=== PATIENT | male | born 1965 | race Hispanic/Latino ===

== ENCOUNTER 2018-04-20 11:20 | Emergency (ER) | payer OTHER ==
[2018-04-20] MEDS ORDERED: HYDROCODONE/APAP 10/325 TAB ONE (11:54)
--- NOTE | 2018-04-20 12:59 | RAD REPORT ---
EXAM DESCRIPTION: Ribs Right - 04/20/2018 12:42 pm CLINICAL HISTORY: Right rib pain FINDINGS: Mildly to moderately displaced fractures involve right fifth through ninth posterior ribs. A pneumothorax is not seen. The lungs appear clear of acute infiltrate The heart is mildly enlarged. Postsurgical changes involve the chest. The heart is mildly enlarged. A ray is tortuous/ectatic
--- NOTE | 2018-04-20 12:59 | RAD REPORT ---
EXAM DESCRIPTION: Tony Single View04/20/2018 12:42 pm CLINICAL HISTORY: Chest pain COMPARISON: 2016 FINDINGS: Mildly to moderately displaced fractures involve right fifth through ninth posterior ribs. A pneumothorax is not seen. The lungs appear clear of acute infiltrate The heart is mildly enlarged. Postsurgical changes involve the chest. The heart is mildly enlarged. A ray is tortuous/ectatic
--- NOTE | 2018-04-20 15:36 | RAD REPORT ---
EXAM DESCRIPTION: CT - Thorax Wo Con - 04/20/2018 3:01 pm CLINICAL HISTORY: Chest pain status post fall COMPARISON: April 20 x-ray chest TECHNIQUE: Computed axial tomography of the chest was obtained. Contrast was not requested. All CT scans are performed using dose optimization technique as appropriate and may include automated exposure control or mA/KV adjustment according to patient size. FINDINGS: The evaluation of mediastinum, ulises and vessels is limited secondary to lack of IV contras t administration. Mild bibasilar atelectasis. A mediastinal hematoma is not seen. Minimal right pleural effusion. Mildly to moderately displaced fractures involve the right posterior fifth through ninth ribs. A pneu mothorax is not seen IMPRESSION: Mildly to moderately displaced fractures involve the right posterior fifth through ninth ribs. A pneumothorax is not seen
--- NOTE | 2018-04-20 16:10 | ER ---
Nurse's Notes [facility] Name: Chaim Juan Age: 53 yrs Sex: Male : 1965 Arrival Date: 04/20/2018 Time: 11:24 Bed 24 Private MD: Diagnosis: Multiple fractures of ribs, right side Presentation: 04/20 11:26 Presenting complaint: Patient states: tripped on sidewalk on way to [facility] [place] [facility]. woke up ls4 today and too much pain to get out of bed. pain 10/10 in right ribs. Transition of care: patient was not received from another setting of care. Onset of symptoms was April 19, 2018. Risk Assessment: Do you want to hurt yourself or someone else? Patient reports no desire to harm self or others. Initial Sepsis Screen: Does the patient meet any 2 criteria? No. Patient's initial sepsis screen is negative. Does the patient have a suspected source of infection? No. Patient's initial sepsis screen is negative. Care prior to arrival: None. 11:26 Method Of Arrival: EMS: [facility] 4 11:26 Acuity: ISRA 4 ls4 Triage Assessment: 11:29 General: Appears uncomfortable, Behavior is anxious. Pain: Complains of pain in right ls4 lateral anterior chest Pain currently is 10 out of 10 on a pain scale. Cardiovascular: Reports None Capillary refill < 3 seconds Rhythm is regular. Respiratory: Airway is patent Respiratory effort is even, unlabored, Respiratory pattern is symmetrical, Breath sounds are clear bilaterally. Historical: - Home Meds: 11:29 metoprolol tartrate 25 mg Oral tab 1 tab once daily [Active]; ls4 - PMHx: 11:29 CAD; Cataracts; colon cancer; lad blockage; ls4 - PSHx: 11:29 bypass; colon cancer surgery; ls4 - Immunization history:: Adult Immunizations up to date. - Social history:: Smoking status: Patient/guardian denies using tobacco. - Ebola Screening: : Patient negative for fever greater than or equal to 101.5 degrees Fahrenheit, and additional compatible Ebola Virus Disease symptoms Patient denies exposure to infectious person Patient denies travel to an Ebola-affected area in the 21 days before illness onset No symptoms or risks identified at this time. Screenin:02 Abuse screen: Denies threats or abuse. Denies injuries from another. Nutritional ls4 screening: No deficits noted. Tuberculosis screening: No symptoms or risk factors identified. Fall Risk None identified. Assessment: 11:24 General: Appears uncomfortable, Behavior is cooperative. Pain: Complains of pain in ls4 right lateral anterior chest Pain does not radiate. Pain began suddenly, INJURY. Neuro: No deficits noted. Cardiovascular: No deficits noted. Respiratory: No deficits noted. GI: No deficits noted. 14:03 Reassessment: Patient and/or family updated on plan of care and expected duration. Pain ls4 level reassessed. Patient is alert, oriented x 3, equal unlabored respirations, skin warm/dry/pink. 16:49 Reassessment: Patient appears in no apparent distress at this time. No changes from rv previously documented assessment. Patient and/or family updated on plan of care and expected duration. Pain level reassessed. Patient is alert, oriented x 3, equal unlabored respirations, skin warm/dry/pink. AWAITING TRANSPORT. FOR DISCHARGE. Vital Signs: 11:30 BP 149 / 99; Pulse 70; Resp 24; Temp 98.2(O); Pulse Ox 97% on R/A; Pain 10/10; ls4 12:30 BP 138 / 84; Pulse 84; Resp 19; Pulse Ox 97% on R/A; Pain 5/10; ls4 13:59 BP 132 / 78; Pulse 82; Resp 19; Temp 98.4(O); Pulse Ox 97% on R/A; Pain 5/10; ls4 16:05 BP 140 / 94 LA; Pulse 83; Resp 18 S; Pulse Ox 95% on R/A; rv 16:30 BP 137 / 86 LA; Pulse 78; Resp 19 S; Pulse Ox 96% on R/A; rv ED Course: 11:24 Patient arrived in ED. ls4 11:28 Triage completed. ls4 11:30 Arm band placed on right wrist. ls4 11:31 Angie Francisco FNP-C is [facility]. kb 11:31 Pravin Machado MD is Attending Physician. kb 11:37 Carolina Ghosh, BARBARA is Primary Nurse. ls4 11:42 EKG done, by him tech. reviewed by Angie SORIANO. at1 12:02 Patient has correct armband on for positive identification. Bed in low position. Call ls4 light in reach. Side rails up X 1. Pulse ox on. NIBP on. Warm blanket given. Verbal reassurance given. 12:44 Chest Single View XRAY In Process Unspecified. EDMS 12:44 Ribs Right XRAY In Process Unspecified. EDMS 13:14 Radiology exam delayed due to lab results not completed at this time. (BUN/Creatinine). jj2 13:45 Radiology exam delayed due to lab results not completed at this time. (BUN/Creatinine). jj2 13:57 No provider procedures requiring assistance completed. Inserted saline lock: 20 gauge ls4 in right antecubital area, using aseptic technique. Patient maintains SpO2 saturation greater than 95% on room air. 15:01 Thorax Wo Con In Process Unspecified. EDMS 15:02 CT completed. Patient tolerated procedure well. Patient moved to CT via stretcher. Patient moved back from CT. 15:11 Report given to Anmol JIMENEZ. ls4 16:49 IV discontinued, bleeding controlled, No redness/swelling at site. Pressure dressing rv applied. Administered Medications: 11:44 Drug: [place] 10 mg-325 mg 1 tabs Route: PO; ls4 13:55 Follow up: Response: No adverse reaction; Pain is decreased ls4 Outcome: 16:09 Discharge ordered by . kb 16:49 Discharged to home ambulatory, via wheelchair. rv 16:49 Condition: good 16:49 Discharge instructions given to patient, Instructed on discharge instructions, follow up and referral plans. medication usage, Demonstrated understanding of instructions, follow-up care, medications, Prescriptions given X 1. 18:21 Patient left the ED. rv Signatures: Dispatcher [employer] EDMS Angie Francisco, ANIMAL CONTROL LICENSING WORKER-Aylcia ANIMAL CONTROL LICENSING WORKER-Tristan Elliott Susan sj Gonzales, Amanda, telecom engineer EKG Tat1 Wicho Nguyen, RN RN Carolina Lieberman RN RN ls4
--- NOTE | 2018-04-20 16:10 | EDPHYS ---
Physician Documentation [facility] Name: Chaim Juan Age: 53 yrs Sex: Male : 1965 Arrival Date: 04/20/2018 Time: 11:24 Bed 24 Private MD: ED Physician Pravin Machado HPI: 04/20 13:28 This 53 yrs old Male presents to ER via EMS with complaints of Chest Wall Pain.kb 13:28 The patient or guardian reports chest pain that is located primarily in the anterior kb chest wall. Onset: The symptoms/episode began/occurred 2 day(s) ago. The pain does not radiate. Associated signs and symptoms: The patient has no apparent associated signs or symptoms. The chest pain is described as sharp. Duration: The patient or guardian reports a single episode, that is still ongoing. Modifying factors: the symptoms are aggravated by activity, breathing, cough, deep breath, movement, palpation of area. Severity of pain: At its worst the pain was moderate severe in the emergency department the pain is unchanged. The patient has not experienced similar symptoms in the past. The patient has not recently seen a physician. Pt reports he slipped and fell on concrete on Thursday and landed on right chest. c/o right chest pain, worse with movement, breathing and coughing. Historical: - Home Meds: 11:29 metoprolol tartrate 25 mg Oral tab 1 tab once daily [Active]; ls4 - PMHx: 11:29 CAD; Cataracts; colon cancer; lad blockage; ls4 - PSHx: 11:29 bypass; colon cancer surgery; ls4 - Immunization history:: Adult Immunizations up to date. - Social history:: Smoking status: Patient/guardian denies using tobacco. - Ebola Screening: : Patient negative for fever greater than or equal to 101.5 degrees Fahrenheit, and additional compatible Ebola Virus Disease symptoms Patient denies exposure to infectious person Patient denies travel to an Ebola-affected area in the 21 days before illness onset No symptoms or risks identified at this time. ROS: 13:27 Constitutional: Negative for fever, chills, and weight loss, ENT: Negative for injury, kb pain, and discharge, Neck: Negative for injury, pain, and swelling, Respiratory: Negative for shortness of breath, cough, wheezing, and pleuritic chest pain, Abdomen/GI: Negative for abdominal pain, nausea, vomiting, diarrhea, and constipation, MS/Extremity: Negative for injury and deformity, Skin: Negative for injury, rash, and discoloration, Neuro: Negative for headache, weakness, numbness, tingling, and seizure. 13:27 Cardiovascular: Positive for chest pain, with cough, with movement, Negative for edema, orthopnea, palpitations, paroxysmal nocturnal dyspnea. Exam: 13:28 Constitutional: This is a well developed, well nourished patient who is awake, alert, kb and in no acute distress. Head/Face: Normocephalic, atraumatic. ENT: Nares patent. No nasal discharge, no septal abnormalities noted. Tympanic membranes are normal and external auditory canals are clear. Oropharynx with no redness, swelling, or masses, exudates, or evidence of obstruction, uvula midline. Mucous membranes moist. Neck: Trachea midline, no thyromegaly or masses palpated, and no cervical lymphadenopathy. Supple, full range of motion without nuchal rigidity, or vertebral point tenderness. No Meningismus. Cardiovascular: Regular rate and rhythm with a normal S1 and S2. No gallops, murmurs, or rubs. Normal PMI, no JVD. No pulse deficits. Respiratory: Lungs have equal breath sounds bilaterally, clear to auscultation and percussion. No rales, rhonchi or wheezes noted. No increased work of breathing, no retractions or nasal flaring. Abdomen/GI: Soft, non-tender, with normal bowel sounds. No distension or tympany. No guarding or rebound. No evidence of tenderness throughout. Skin: Warm, dry with normal turgor. Normal color with no rashes, no lesions, and no evidence of cellulitis. MS/ Extremity: Pulses equal, no cyanosis. Neurovascular intact. Full, normal range of motion. Neuro: Awake and alert, GCS 15, oriented to person, place, time, and situation. Cranial nerves II-XII grossly intact. Motor strength 5/5 in all extremities. Sensory grossly intact. Cerebellar exam normal. Normal gait. 13:28 Chest/axilla: Inspection: normal, Palpation: tenderness, that is severe, of the right lateral anterior chest and right breast, that totally reproduces the patient's complaints. Vital Signs: 11:30 BP 149 / 99; Pulse 70; Resp 24; Temp 98.2(O); Pulse Ox 97% on R/A; Pain 10/10; ls4 12:30 BP 138 / 84; Pulse 84; Resp 19; Pulse Ox 97% on R/A; Pain 5/10; ls4 13:59 BP 132 / 78; Pulse 82; Resp 19; Temp 98.4(O); Pulse Ox 97% on R/A; Pain 5/10; ls4 16:05 BP 140 / 94 LA; Pulse 83; Resp 18 S; Pulse Ox 95% on R/A; rv 16:30 BP 137 / 86 LA; Pulse 78; Resp 19 S; Pulse Ox 96% on R/A; rv MDM: 11:31 Patient medically screened. kb 13:27 Data reviewed: vital signs, nurses notes. Data interpreted: Pulse oximetry: on room air kb is 97 %. Interpretation: normal. 16:09 Counseling: I had a detailed discussion with the patient and/or guardian regarding: the kb historical points, exam findings, and any diagnostic results supporting the discharge/admit diagnosis, radiology results, the need for outpatient follow up, a family practitioner, to return to the emergency department if symptoms worsen or persist or if there are any questions or concerns that arise at home. 04/20 13:04 Order name: Creatinine for Radiology; Complete Time: 13:52 kb 04/20 11:32 Order name: Chest Single View XRAY; Complete Time: 13:02 kb 04/20 11:32 Order name: Ribs Right XRAY; Complete Time: 13:00 kb 04/20 14:37 Order name: Thorax Wo Con; Complete Time: 15:40 EDMS 04/20 16:09 Order name: INCENTIVE SPIROMETRY kb 04/20 13:04 Order name: IV Start; Complete Time: 13:55 kb 04/20 16:26 Order name: RC INCENTIVE SPIROMETRY EDMS 04/20 17:47 Order name: EKG Electrocardiogram EDMS Administered Medications: 11:44 Drug: [place] 10 mg-325 mg 1 tabs Route: PO; ls4 13:55 Follow up: Response: No adverse reaction; Pain is decreased ls4 Disposition: 18:29 Co-signature as Attending Physician, Pravin Machado MD. rn Disposition: 04/20/18 16:09 Discharged to Home. Impression: Multiple fractures of ribs, right side. - Condition is Stable. - Discharge Instructions: Rib Fracture, [id number]. - Prescriptions for Tylenol- Codeine #3 300-30 mg Oral Tablet - take 2 tablets by ORAL route every 6 hours As needed; 20 tablet. - Medication Reconciliation Form, Thank You Letter, Antibiotic Education, Prescription Opioid Use form. - Follow up: Private Physician; When: 2 - 3 days; Reason: Recheck today's complaints, Continuance of care, Re-evaluation by your physician. Follow up: Emergency Department; When: As needed; Reason: Worsening of condition. Signatures: Dispatcher [employer] [facility] Angie Francisco, GRATING MACHINE OPERATOR-C GRATING MACHINE OPERATOR-Ckb Pravin Machado MD MD rn Wicho Nguyen RN RN Carolina Lieberman RN RN ls4 Corrections: (The following items were deleted from the chart) 14:37 13:05 Thorax W/ Con+CT.RAD.BRZ ordered. [facility] 18:21 16:09 04/20/2018 16:09 Discharged to Home. Impression: Multiple fractures of ribs, rv right side. Condition is Stable. Forms are Medication Reconciliation Form, Thank You Letter, Antibiotic Education, Prescription Opioid Use. Follow up: Private Physician; When: 2 - 3 days; Reason: Recheck today's complaints, Continuance of care, Re-evaluation by your physician. Follow up: Emergency Department; When: As needed; Reason: Worsening of condition. kb
[2018-04-20] MEDS ORDERED: ACETAMINOPHEN 500 MG TAB ONE (18:04)
[2018-04-20 18:38] VITALS: TEMP 98.4
[2018-04-20 18:41] VITALS: BP 137/86; O2SAT 96
--- NOTE | 2018-04-21 06:06 | EKG ---
Test Date: 2018-04-20 Test Time: 11:36:21 Tax Director: ANAIS MEASUREMENT RESULTS: Intervals: Rate: 70 LA: 168 QRSD: 84 QT: 400 QTc: 432 [place]: P: 41 LA: 168 QRS: 2 T: 24 INTERPRETIVE STATEMENTS: Normal sinus rhythm Cannot rule out Inferior infarct, age undetermined Anteroseptal infarct, age undetermined Abnormal ECG Compared to ECG 03/23/2017 22:09:16 No significant changes Electronically Signed On 04-21-18 06:04:34 TALENT ACQUISITION PROGRAM MANAGER by Aristides Boyd
== END 2018-04-20 18:21 | disposition home or self-care (01) ==
LOC: ER 11:20
DX: S22.41XA Multiple fractures of ribs, right side, initial encounter for closed fracture (principal); W01.0XXA Fall on same level from slipping, tripping and stumbling without subsequent striking against object, initial encounter; I25.10 Atherosclerotic heart disease of native coronary artery without angina pectoris; C18.9 Malignant neoplasm of colon, unspecified
CPT/HCPCS: 36415; 71045; 71250; 93005; 99285